=== PATIENT | female | born 1960 | race African-American/Black ===

== ENCOUNTER 2018-06-13 07:30 | Emergency (ER) | payer OTHER ==
[~2018-06-13] VITALS: Ht 167.6 cm; Wt 75.0 kg
[2018-06-13] MEDS ORDERED: ONDANSETRON HCL 4MG/2ML INJ IV STA (08:16)
[2018-06-13] MEDS ORDERED: SODIUM CHLORIDE 0.9% 1,000 ML IV ONE (08:16)
[2018-06-13] MEDS ORDERED: KETOROLAC 30MG/ML VIAL IV ONE (08:30)
[2018-06-13 08:41] LABS: BASOPHILS % 0.3 % (0.0-2.0); HEMATOCRIT. 34.3 % (36.0-48.0); HEMOGLOBIN. 11.1 g/dL (12.0-16.0); LYMPHOCYTES % 11.1 % (20.0-50.0); MEAN CORPUSCULAR HEMOGLOBIN 29.3 pg (28.0-32.0); MEAN CORPUSCULAR VOLUME 90.3 fL (81.0-99.0); MEAN PLATELET VOLUME 11.1 fl (7.4-10.4); MONOCYTES % 2.2 % (2.0-8.0); NEUTROPHILS % 86.4 % (40.0-76.0); PLATELET 266 x1000/uL (130-400); RED CELL DISTRIBUTION WIDTH 13.7 % (11.6-14.6)
[2018-06-13 09:02] LABS: CHLORIDE 104 mEq/L (98-107)
[2018-06-13 09:26] LABS: PROTHROMBIN TIME 10.3 sec (9.1-11.1)
[2018-06-13] MEDS ORDERED: LORAZEPAM 2MG/ML CPJ IV ONE (10:45)
[2018-06-13] MEDS ORDERED: ONDANSETRON HCL 4MG/2ML INJ IV ONE (10:45)
[2018-06-13] MEDS ORDERED: LORAZEPAM 0.5MG TABLET PO ONE (10:45)
[2018-06-13 11:03] LABS: CLARITY URINE CLEAR (CLEAR); COLOR URINE YELLOW (YELLOW); KETONES URINE NEGATIVE (NEGATIVE); LEUKOCYTE ESTERASE URINE NEGATIVE (NEGATIVE); NITRITE URINE NEGATIVE (NEGATIVE); OCCULT BLOOD URINE NEGATIVE (NEGATIVE); PROTEIN URINE NEGATIVE (NEGATIVE); SPECIFIC GRAVITY URINE 1.016 (1.005-1.030); UROBILINOGEN URINE 0.2 E.U./dL (0.2-1.0)
[2018-06-13 11:31] VITALS: BP 164/74
== END 2018-06-13 13:04 | disposition home or self-care (01) ==
LOC: ER 07:40
DX: K80.20 Calculus of gallbladder without cholecystitis without obstruction (principal); K44.9 Diaphragmatic hernia without obstruction or gangrene; J98.11 Atelectasis; N83.9 Noninflammatory disorder of ovary, fallopian tube and broad ligament, unspecified; R10.84 Generalized abdominal pain; Z90.12 Acquired absence of left breast and nipple
CPT/HCPCS: 36415; 74177; 80053; 81003; 83690; 85025; 85610; 96361; 96374; 96375; 96376; 99284; J1885; J2060; J2405; J7030